=== PATIENT | male | born 1990 | race Caucasian/White ===

== ENCOUNTER 2025-08-06 16:21 | Emergency (ER) | payer MEDICARE, SELFPAY ==
[2025-08-06 16:21] VITALS: BMI 17.7
--- NOTE | 2025-08-06 16:56 | ED.GENMED ---
History of Present Illness
General
Chief Complaint: Overdose Unintentional
Source: patient and ambulance crew
Exam Limitations: clinical condition
Time Seen by Provider: 08/06/25 16:23
Nursing documentation reviewed up to this point in time: agreed with
History of Present Illness
History of Present Illness:
35-year-old male presents status post overdose, family thought he was in cardiac arrest they were doing CPR when EMS got there apparently had a pulse and was breathing required several doses of IV Narcan and then a push dose epi due to a blood
pressure in the 50s patient responded well awake alert not requiring intubation
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
homeless living in [place] now is a resident at [facility]
Past History
Past History
ED Past Medical History: None
ED Past Surgical History: None
Social History
Drug: IVDA
Living: with family
Phy Exam
Physical Exam
Physical Exam:
Physical Exam
General: no apparent distress, not acutely ill
Neck: No jaundice
Heart: s1/s2 regular rate and rhythm, no murmur. equal radial pulses.
Lungs: No wheezing
Abdomen: Soft nontender
Neuro: alert and oriented. no focal neurological deficits
Skin: no rash
Psychiatric: well kept. interactive and cooperative
Extremities: Bilateral transmet amputations left foot with edema sutures in place scant drainage
Sepsis
Sepsis Screening
Sepsis Assessment: Sepsis Ruled Out
Sepsis Screen
Sepsis Screen: Sepsis Ruled Out
Date: 08/06/25
Time: 18:17
Course
Orders/Labs/Results
Orders:
Orders
08/06/25 16:27
Electrocardiogram (*1) Urgent
Reason for Study: Other
Other Reason for Exam: sepsis
EKG- Treatment ONCE
CR Chest - 2 Views Urgent
Comment:
Reason For Exam: od cpr
Foot, Left 3 View [CR Foot - Left Min 3 Views] Urgent
Comment:
Reason For Exam: infection
Foot, Right 3 View [CR Foot - Right Min 3 Views] Urgent
Comment:
Reason For Exam: infectin
08/06/25 16:28
Warm Handoff Consult ONCE
Patient agreeable to Warm Hand off: Yes
08/06/25 16:41
Blood Culture Q30M
VIRGIE Source: Blood/Venous
Specimen Description:
08/06/25 16:42
Alcohol Urgent
CRP [C-Reactive Protein] Urgent
Complete Blood Count/With Diff Urgent
Comprehensive Metabolic Panel Urgent
Drug Screen, Urine [Urine Drug Abuse Screen] Urgent
Date Specimen was Collected: 08/06/25
Time Specimen was Collected: 16:39
ESR [Erythrocyte Sed Rate] Urgent
Fentanyl, Urine Urgent
Lactic Acid Q4H
Comment: CANCEL 2nd LACTIC ACID IF 1st LACTIC ACID IS LESS THAN 2
08/06/25 17:00
Blood Culture Q30M
VIRGIE Source: Blood/Venous
Specimen Description:
08/06/25 18:13
Amoxicillin 875 mg/Clav 125 mg [Augmentin 875 mg/125 mg] 1 tablet PO NOW STA
08/06/25 20:30
Lactic Acid Q4H
Comment: CANCEL 2nd LACTIC ACID IF 1st LACTIC ACID IS LESS THAN 2
Abnormal Lab Results
08/06/25
16:42
RBC 4.54 L 10^6/uL
(4.70-6.10)
MPV 11.1 H fL
(7.4-10.4)
Urine Opiates Screen Positive H
(Negative)
Ur Oxycodone Screen Positive H
(Negative)
Urine Fentanyl Screen Positive H
(Negative)
Ur Amphetamines Screen Positive H
(Negative)
U Methamphetamines Scrn Positive H
(Negative)
Urine Cocaine Screen Positive H
(Negative)
08/06/25 16:42
08/06/25 16:42
Vital Signs
Initial and Last Documented VS:
Initial Vital Signs
Temp Pulse Resp Pulse Ox
98.2 F 106 20 100
08/06/25 16:21 08/06/25 16:21 08/06/25 16:21 08/06/25 16:21
Last Documented Vital Signs
Temp Pulse Resp Pulse Ox
98.2 F 106 20 100
08/06/25 16:21 08/06/25 16:21 08/06/25 16:21 08/06/25 16:59
*Pulse Oximetry
SaO2: 100
Oxygen Mode of Delivery: Room air
Patient hypoxic: no
*Critical Care Note
Total Time (30-74mins, 75-104mins- exclusive of procedures): Not Applicable
Update Note
Update Note:
Update, discussed with family has been living on the streets, home for 30 minutes daily overdose, had bone biopsy at [facility], results of which are pending, I did offer him evaluation by warm handoff which he refused, states he would like to go home
reviewed extensively with family members, his white count ESR CRP are noted as are his x-rays at this point I think it would be prudent to put him on some antibiotics is certainly at high risk for infection
ED Attending Note
-
Portions of this chart may have been created with voice recognition software.� Occasional wrong word or��sound alike� substitutions may have occurred due to the inherent limitations of voice recognition software.
Discharge Plan
Departure
Patient Disposition: Home (Routine Discharge)
Date of Disposition: 08/06/25
Time of Disposition: 18:15
Patient with high blood pressure during this ER visit?: No
Condition: Fair
Discharge Problem:
Overdose of fentanyl
Instructions: Opioid Overdose (DC)
Prescriptions:
New
amoxicillin-pot clavulanate 875-125 mg tablet
1 tab PO Q12H Qty: 20 0RF
Referrals:
UNKNOWN - PT DOES,NOT KNOW [Family Provider]
[facility] [Outside] - Next open appointment
Interventions
Interventions:
*Risk Screen - Suicide Last Done: 08/06/25 16:21
*General Assessment Last Done: 08/06/25 16:21
*Neglect/Abuse Screening Last Done: 08/06/25 16:21
*ED- Fall Risk Assessment Last Done: 08/06/25 16:21
ED- Cardiac Assessment Last Done: 08/06/25 16:21
Discharge Date and Time
Print Language: BRUNEIAN
[2025-08-06 17:04] LABS: Hematocrit 40.1 % (39.0-52.0); Hemoglobin 13.4 g/dL (13.0-18.0); Mean Corp Hgb Conc. 33.4 g/dL (33.0-37.0); Mean Corpuscular Volume 88.3 fL (80.0-94.0); Nucleated Red Blood Cells % 0 % (-); Platelet Count 259 10^3/uL (130-400); Red Cell Dist. Width 13.7 % (11.5-14.5)
[2025-08-06 17:28] LABS: C-Reactive Protein < 5.00 mg/L (0.0-10.00)
[2025-08-06 17:33] LABS: ALT (SGPT) 29 U/L (0-50); AST (SGOT) 25 U/L (17-59); Albumin 4.4 g/dl (3.5-5.0); Alkaline Phosphatase 77 U/L (38-126); Blood Urea Nitrogen 14 mg/dl (9-20); Calcium 9.7 mg/dl (8.4-10.2); Carbon Dioxide 27 mmol/L (22-30); Chloride 106 mmol/L (98-107); Estimated Creatinine Clearance 85 ml/min; Glucose 87 mg/dl (70-99); Potassium 4.7 mmol/L (3.5-5.1); Sodium 137 mmol/L (135-145); Total Protein 7.0 g/dl (6.3-8.2); eGFR > 60.00
[2025-08-06] MEDS: AUGMENTIN 875 MG/125 MG 1 TABLET PO (18:27)
[2025-08-06 18:46] VITALS: BP 126/78
== END 2025-08-06 18:47 | disposition home or self-care (01) ==
LOC: EMR 16:21
PROVIDERS: EMERGENCY PHYSICIAN Emergency Medicine
DX: T40.411A Poisoning by fentanyl or fentanyl analogs, accidental (unintentional), initial encounter (principal); Y92.9 Unspecified place or not applicable; E11.9 Type 2 diabetes mellitus without complications; Z59.00 Homelessness unspecified
CPT/HCPCS: 99283; 71046; 73630; 80053; 80306; 80307; 82077; 83605; 85025; 85652; 86140; 87040